=== PATIENT | female | born 1960 | race Caucasian/White ===

== ENCOUNTER 2025-06-26 18:16 | Inpatient (IN) | payer BC ==
[2025-06-26 19:18] VITALS: BMI 26.9
[2025-06-26] MEDS ORDERED: MAGNESIUM HYDROX 2400MG/30ML ORAL SUSPENSION 30 ML CUP PO PRN (20:09)
[2025-06-26] MEDS ORDERED: BENZONATATE 200 MG CAPSULE PO PRN (20:09)
[2025-06-26] MEDS ORDERED: NICOTINE POLACRILEX 2 MG GUM BUC PRN (20:09)
[2025-06-26] MEDS ORDERED: LOPERAMIDE HCL 2 MG CAPSULE PO PRN (20:09)
[2025-06-26] MEDS ORDERED: MAG HYDROX/AL HYDROX/SIMETH 30 ML UNIT-DOSE CUP PO PRN (20:09)
[2025-06-26] MEDS ORDERED: ONDANSETRON *ODT* 4 MG TABLET SL PRN (20:09)
[2025-06-26] MEDS ORDERED: POLYETHYLENE GLYCOL (HEALTHYLAX) 3350 17 GM PACKET PO PRN (20:09)
[2025-06-26] MEDS ORDERED: NICOTINE POLACRILEX 2 MG LOZENGE BC PRN (20:09)
[2025-06-26] MEDS ORDERED: BISMUTH SUBSALICYLATE 524 MG/30 ML PO PRN (20:09)
[2025-06-26] MEDS ORDERED: DICYCLOMINE HCL 10 MG CAPSULE PO PRN (20:09)
[2025-06-26] MEDS ORDERED: guaiFENesin 600 MG TABLET.ER (FP) PO PRN (20:09)
[2025-06-26] MEDS ORDERED: NALOXONE (NARCAN) HCL 4 MG/0.1 ML SPRAY NS PRN (20:09)
[2025-06-26] MEDS ORDERED: BENZOCAINE/MENTHOL (CHLORASEPTIC ) LOZENGE MM PRN (20:09)
[2025-06-26] MEDS ORDERED: IBUPROFEN 400 MG TABLET (FP) PO PRN (20:09)
[2025-06-26] MEDS: THIAMINE 100 MG TABLET PO SCH (23:15)
[2025-06-26] MEDS: MELATONIN 5 MG TABLETS PO SCH (23:15)
[2025-06-26] MEDS: IBUPROFEN 600 MG TABLET (FP) PO PRN (23:16)
[2025-06-26] MEDS: hydrOXYzine PAMOATE 25 MG CAPSULE (FP) PO PRN (23:18)
[2025-06-26] MEDS: NITROFURANTOIN MONOHYD/M-CRYST 100 MG CAPSULE PO SCH (23:40)
[2025-06-27] MEDS: LEVOTHYROXINE NA 25 MCG TABLET (FP) PO SCH (07:54)
[2025-06-27] MEDS: PRENATAL VITAMINS W/ FOLIC ACID TABLET (FP) PO SCH (09:33)
[2025-06-27] MEDS: ASPIRIN 81 MG CHEWABLE TABLETS PO SCH (09:33)
[2025-06-27] MEDS: ENALAPRIL MALEATE 5 MG TABLET PO SCH (09:34)
[2025-06-27 09:56] LABS: MCHC 31.9 g/dl (32.2-35.5); MEAN CELL VOLUME 93.8 fl (79.4-94.8); MEAN PLT VOLUME 12.1 fl (9.4-12.3); RDW 13.3 % (12.4-16.4)
[2025-06-27 10:17] LABS: GLUCOSE,RANDOM 90.0 mg/dL (74-106)
[2025-06-27 10:18] LABS: TOT PROT 7.4 g/dl (6.4-8.2)
[2025-06-27 10:19] LABS: CO2 27.0 mmol/L (21-32)
[2025-06-27 10:20] LABS: ALK PHOS 104.0 U/L (40-150)
[2025-06-27 10:23] LABS: CREATININE 0.8 mg/dL (0.55-1.3); SGOT/AST 26.0 U/L (5-34); SGPT/ALT 17.0 U/L (0-55)
[2025-06-28] MEDS: METHOCARBAMOL 500 MG TABLET PO PRN (05:57)
[2025-06-28] MEDS: ACETAMINOPHEN 325 MG TABLET (FP) PO PRN (17:40)
[2025-06-29 09:31] VITALS: BP 125/57; PULSE 49; RESP 16; TEMP 97.3
[2025-06-29] MEDS ORDERED: AMOX TR/POT CLAV 875MG/125MG TABLETS (FP) PO SCH (11:00)
[2025-06-29] MEDS: AMOX TR/POT CLAV 875MG/125MG TABLETS (FP) PO SCH (12:01)
[2025-06-29] MEDS: CELECOXIB 200 MG CAPSULE PO SCH (12:01)
[2025-06-29] MEDS: FAMOTIDINE 20 MG TABLET PO SCH (12:01)
[2025-06-29] MEDS ORDERED: PHENAZOPYRIDINE HCL 100 MG TABLET (FP) PO SCH (13:00)
== END 2025-06-29 14:20 | disposition home or self-care (01) | DRG 773 ==
LOC: YASAS 18:16 → Y6N 21:03
PROVIDERS: ADMIT Neuromusculoskeletal Medicine & OMM; ATTEND Student in an Organized Health Care Education/Training Program
PROC: HZ2ZZZZ Detoxification Services for Substance Abuse Treatment (ICD-10-PCS; principal; 2025-06-26)
DX: F11.23 Opioid dependence with withdrawal (principal); I10 Essential (primary) hypertension; E03.9 Hypothyroidism, unspecified; G62.9 Polyneuropathy, unspecified; F20.9 Schizophrenia, unspecified; R26.81 Unsteadiness on feet; F17.210 Nicotine dependence, cigarettes, uncomplicated
CPT/HCPCS: 36415; 80053; 85027; 86780; 93005; 93010